=== PATIENT | female | born 1950 | race Caucasian/White ===

== ENCOUNTER 2018-08-15 11:30 | Inpatient (IN) | payer MEDICARE ==
[~2018-08-15] VITALS: Ht 154.9 cm; Wt 53.6 kg
[2018-08-15 14:09] VITALS: BP 103/71
[2018-08-15 14:12] VITALS: BP 103/71
[2018-08-15] MEDS ORDERED: IBUP-1484 PO (14:49)
[2018-08-15] MEDS ORDERED: TRAM50TA2 PO (14:49)
[2018-08-15] MEDS ORDERED: PROPOFOL 10 MG/ML, 100ML IV ONE (15:17)
[2018-08-15] MEDS ORDERED: DOPAMINE/D5W PMX 400 MG/250 ML ONE (15:17)
[2018-08-15] MEDS ORDERED: ETOMIDATE 40 MG/20 ML ONE (15:17)
[2018-08-15] MEDS ORDERED: ATROPINE SYRINGE 0.1 MG/ML, 10ML ONE (15:17)
[2018-08-15] MEDS ORDERED: SUCCINYLCHOLINE 20 MG/ML, 10ML ONE (15:17)
[2018-08-15 15:19] LABS: BASOPHILS % (AUTO) 0 % (0-1); EOSINOPHILS % (AUTO) 0 % (1-7); LYMPHOCYTES # (AUTO) 0.14 x10^3/uL (1-3.4); LYMPHOCYTES % (AUTO) 4 % (22-44); MD NO; MEAN CORPUSCULAR HEMOGLOBIN 29.3 pg (27.0-34.8); MEAN CORPUSCULAR HGB CONC 33.2 g/dL (32.4-35.8); MEAN CORPUSCULAR VOLUME 88.1 fL (80-100); MEAN PLATELET VOLUME 10.5 fL (7.4-10.4); MONOCYTES # (AUTO) 0.14 x10^3/uL (0.2-0.8); MONOCYTES % (AUTO) 4 % (2-9); NEUTROPHILS # (AUTO) 3.41 x10^3/uL (1.8-6.8); NEUTROPHILS % (AUTO) 92 % (42-75); PLATELET COUNT 147 x10^3/uL (130-400); RED BLOOD COUNT 3.69 x10^6/uL (3.82-5.3); RED CELL DISTRIBUTION WIDTH 17.9 % (9.6-15.2)
[2018-08-15 15:28] LABS: ALANINE AMINOTRANSFERASE 10 U/L (12-78); ALBUMIN 0.8 g/dL (3.4-5.0); ANION GAP 9 mmol/L (5-15); CALCIUM 7.5 mg/dL (8.5-10.1); CHLORIDE 117 mmol/L (98-107); CREATININE 3.03 mg/dL (0.55-1.02)
[2018-08-15] MEDS ORDERED: ONDANSETRON 2MG/ML, 2ML IVPush PRN (15:30)
[2018-08-15] MEDS ORDERED: POLYETHYLENE GLYCOL 17 GM PACKET PO PRN (15:30)
[2018-08-15] MEDS ORDERED: LABETALOL 5MG/ML, 20ML IVPush PRN (15:30)
[2018-08-15 15:31] LABS: ALKALINE PHOSPHATASE 216 U/L (45-117); BILIRUBIN,TOTAL 0.2 mg/dL (0.2-1.0); TOTAL PROTEIN 4.3 g/dL (6.4-8.2)
[2018-08-15] MEDS ORDERED: ALBUMIN HUMAN 25% 100 ML IV ONE (16:00)
[2018-08-15 17:05] LABS: FREE T4 (FREE THYROXINE) 0.42 ng/dL (0.76-1.46); THYROID STIMULATING HORMONE 27.3 mIU/L (0.358-3.740)
[2018-08-15] MEDS ORDERED: HYDROCORTISONE 100 MG INJ. IVPush SCH (17:30)
[2018-08-15] MEDS: HEPARIN 5,000 UNITS/ML, 1ML SQ SCH (17:32)
[2018-08-15] MEDS ORDERED: SODIUM BICARB 8.4%,50ML SYR. 50 MEQ in D5%-0.45% NACL 1,000 ML IV SCH (18:00)
[2018-08-15] MEDS ORDERED: LEVOTHYROXINE 100 MCG INJ IVPush SCH (18:00)
[2018-08-15] MEDS: LIOTHYRONINE 5 MCG TABLET PO SCH ×2 (18:00→18:19)
[2018-08-15] MEDS ORDERED: ALBUMIN HUMAN 25% 100 ML IV SCH (18:00)
[2018-08-15 18:10] LABS: MICROSCOPIC INDICATED
[2018-08-15] MEDS: LEVOTHYROXINE 100 MCG INJ IVPush SCH (18:20)
[2018-08-15 18:24] LABS: CALCIUM 7.6 mg/dL (8.5-10.1)
[2018-08-15] MEDS ORDERED: PIPERACILLIN/TAZO 2.25 GM in SODIUM CHLORIDE 0.9% 50 ML IV SCH (18:30)
[2018-08-15 18:47] LABS: CHLORIDE,URINE RANDOM 40 mmol/L; POTASSIUM,URINE RANDOM 53 mmol/L; SODIUM,URINE RANDOM 19 mmol/L
[2018-08-15] MEDS ORDERED: NOREPINEPHRINE 1 MG/ML, 4ML ONE (19:53)
[2018-08-15] MEDS ORDERED: NOREPINEPHRINE 4 MG in SODIUM CHLORIDE 0.9% 246 ML IV PRN (20:00)
[2018-08-15] MEDS ORDERED: LEVOTHYROXINE 100 MCG INJ IVPush ONE (20:00)
[2018-08-15] MEDS ORDERED: SODIUM BICARBONATE 650 MG TABLET PO SCH (21:00)
[2018-08-15] MEDS ORDERED: FAMOTIDINE 20 MG/2 ML IV SCH (21:30)
[2018-08-15] MEDS ORDERED: SODIUM CHLORIDE 0.9% 1,000ML IVBOLUS ONE (21:30)
[2018-08-15] MEDS: SODIUM CHLORIDE FLUSH 10ML SYR IVF SCH (21:30)
[2018-08-15] MEDS ORDERED: BISACODYL 10 MG SUPP PR PRN (21:30)
[2018-08-15] MEDS ORDERED: LIDOCAINE-MPF 1%, 2ML ENDO PRN (21:30)
[2018-08-15] MEDS ORDERED: PHARMACY MAY ADJ FOR RENAL FX MC SCH (21:30)
[2018-08-15] MEDS ORDERED: DEXTROSE 50%, 50ML SYRINGE IVPush PRN (21:30)
[2018-08-15] MEDS: INSULIN LISPRO 100 UNITS/ML, PEN SQ-INSULIN SCH (21:30)
[2018-08-15] MEDS ORDERED: LACTULOSE 20 GM/30 ML UDC NG PRN (21:30)
[2018-08-15] MEDS ORDERED: DEXTROSE 4 GM TAB.CHEW PO PRN (21:30)
[2018-08-15] MEDS ORDERED: SENNOSIDES 8.8 MG/5 ML ORAL SOL NG PRN (21:30)
[2018-08-15] MEDS ORDERED: GLUCAGON 1 MG IM PRN (21:30)
[2018-08-15] MEDS ORDERED: SENNA/DOCUSATE TABLET NG PRN (21:30)
[2018-08-15] MEDS: DOPAMINE/D5W PMX 250 ML IV PRN (22:00)
[2018-08-15] MEDS: MIDAZOLAM 1 MG/ML, 2ML IVPush PRN ×2 (22:07→23:36)
[2018-08-15 23:09] LABS: CREATININE,URINE RANDOM 83.4 mg/dL
[2018-08-15] MEDS: PIPERACILLIN/TAZO/PMX 2.25GM 50 ML IV SCH (23:14)
[2018-08-15 23:33] LABS: TROPONIN I 0.018 ng/mL (0.000-0.045)
[2018-08-15 23:38] LABS: INTERNATIONAL NORMALIZED RATIO 1.12 (0.93-1.1); PROTHROMBIN TIME 11.5 Seconds (9.6-11.5)
[2018-08-16] MEDS: HEPARIN 5,000 UNITS/ML, 1ML SQ SCH
[2018-08-16] MEDS: ALBUTEROL/IPRATROPIUM 2.5MG/0.5MG, 3 ML INLINE SCH ×6 (01:46→22:40)
[2018-08-16] MEDS: MIDAZOLAM 1 MG/ML, 2ML IVPush PRN ×6 (02:22→23:51)
[2018-08-16] MEDS: FENTANYL PF 100 MCG/2ML IVPush PRN ×4 (04:34→20:39)
[2018-08-16 04:52] LABS: BASOPHILS # (AUTO) 0.01 x10^3/uL (0-0.1); BASOPHILS % (AUTO) 0 % (0-1); EOSINOPHILS % (AUTO) 0 % (1-7); LYMPHOCYTES # (AUTO) 0.16 x10^3/uL (1-3.4); LYMPHOCYTES % (AUTO) 5 % (22-44); MD NO; MEAN CORPUSCULAR HEMOGLOBIN 28.7 pg (27.0-34.8); MEAN CORPUSCULAR HGB CONC 32.6 g/dL (32.4-35.8); MEAN CORPUSCULAR VOLUME 88.1 fL (80-100); MEAN PLATELET VOLUME 10.8 fL (7.4-10.4); MONOCYTES # (AUTO) 0.11 x10^3/uL (0.2-0.8); MONOCYTES % (AUTO) 4 % (2-9); NEUTROPHILS # (AUTO) 2.79 x10^3/uL (1.8-6.8); NEUTROPHILS % (AUTO) 91 % (42-75); PLATELET COUNT 115 x10^3/uL (130-400); RED BLOOD COUNT 2.45 x10^6/uL (3.82-5.3); RED CELL DISTRIBUTION WIDTH 17.4 % (9.6-15.2)
[2018-08-16 04:55] LABS: ALANINE AMINOTRANSFERASE 8 U/L (12-78); ALBUMIN 1.3 g/dL (3.4-5.0); ANION GAP 13 mmol/L (5-15); CALCIUM 7.1 mg/dL (8.5-10.1); CHLORIDE 117 mmol/L (98-107); CREATININE 2.55 mg/dL (0.55-1.02)
[2018-08-16 05:04] LABS: ALKALINE PHOSPHATASE 125 U/L (45-117); BILIRUBIN,TOTAL 0.2 mg/dL (0.2-1.0); FREE T4 (FREE THYROXINE) 0.91 ng/dL (0.76-1.46); TOTAL PROTEIN 3.7 g/dL (6.4-8.2)
[2018-08-16] MEDS: SODIUM BICARBONATE 8.4% 150 MEQ in DEXTROSE 5% 1,000 ML IV SCH ×3 (05:35→22:12)
[2018-08-16 06:00] VITALS: BP 117/52
[2018-08-16] MEDS: PIPERACILLIN/TAZO/PMX 2.25GM 50 ML IV SCH ×4 (06:30→23:50)
[2018-08-16] MEDS: INSULIN LISPRO 100 UNITS/ML, PEN SQ-INSULIN SCH ×4 (07:00→22:27)
[2018-08-16] MEDS: KSCALE TO 4.5 IV SCH ×3 (07:30→19:30)
[2018-08-16] MEDS ORDERED: POTASSIUM CHLORIDE 30 MEQ in SODIUM CHLORIDE 0.9% 100 ML IV ONE (08:30)
[2018-08-16] MEDS ORDERED: ATROPINE SYRINGE 0.1 MG/ML, 10ML ONE (08:43)
[2018-08-16] MEDS: LEVOTHYROXINE 100 MCG INJ IVPush SCH (08:57)
[2018-08-16] MEDS: SODIUM CHLORIDE FLUSH 10ML SYR IVF SCH ×2 (09:00→22:22)
[2018-08-16] MEDS: HYDROCORTISONE 100 MG INJ. IVPush SCH ×3 (09:25→23:51)
[2018-08-16] MEDS ORDERED: FUROSEMIDE 40 MG/4 ML IV ONE (12:00)
[2018-08-16 12:03] VITALS: BP 115/49
[2018-08-16 12:16] VITALS: BP 115/50
[2018-08-16 12:32] LABS: CRYPTOSPORIDIUM ANTIGEN Negative (Negative)
[2018-08-16 12:34] LABS: CLOSTRIDIUM DIFFICILE ANTIGEN NEGATIVE; CLOSTRIDIUM DIFFICILE TOXIN NEGATIVE (Negative)
[2018-08-16 13:00] VITALS: BP 122/55
[2018-08-16 14:00] VITALS: BP 131/67
[2018-08-16 14:30] VITALS: BP 120/58
[2018-08-16] MEDS: LIOTHYRONINE 5 MCG TABLET PO SCH ×3 (14:34→23:51)
[2018-08-16] MEDS: ERGOCALCIFEROL 50,000 UNIT CAPSULE PO SCH (14:34)
[2018-08-16 15:23] LABS: CREATININE,URINE RANDOM 48.6 mg/dL
[2018-08-16] MEDS ORDERED: POTASSIUM CHLORIDE PMX 100 ML IV ONE (16:00)
[2018-08-16] MEDS: FAMOTIDINE 20 MG/2 ML IV SCH (23:51)
[2018-08-17] MEDS: KSCALE TO 4.5 IV SCH ×3 (01:30→13:30)
[2018-08-17] MEDS: FENTANYL PF 100 MCG/2ML IVPush PRN ×6 (02:12→22:08)
[2018-08-17] MEDS: MIDAZOLAM 1 MG/ML, 2ML IVPush PRN (02:12)
[2018-08-17] MEDS: ALBUTEROL/IPRATROPIUM 2.5MG/0.5MG, 3 ML INLINE SCH ×6 (03:03→23:10)
[2018-08-17 04:18] LABS: FIO2 30 %
[2018-08-17 04:29] LABS: ANION GAP 9 mmol/L (5-15); CALCIUM 6.2 mg/dL (8.5-10.1); CHLORIDE 112 mmol/L (98-107); CREATININE 2.53 mg/dL (0.55-1.02)
[2018-08-17 04:39] LABS: FREE T4 (FREE THYROXINE) 1.35 ng/dL (0.76-1.46)
[2018-08-17 04:42] LABS: MEAN CORPUSCULAR HEMOGLOBIN 29.5 pg (27.0-34.8); MEAN CORPUSCULAR HGB CONC 34.3 g/dL (32.4-35.8); MEAN CORPUSCULAR VOLUME 86.1 fL (80-100); RED BLOOD COUNT 2.77 x10^6/uL (3.82-5.3); RED CELL DISTRIBUTION WIDTH 16.8 % (9.6-15.2)
[2018-08-17 05:00] LABS: BASOPHILS % (AUTO) 0 % (0-1); EOSINOPHILS % (AUTO) 0 % (1-7); LYMPHOCYTES # (AUTO) 0.12 x10^3/uL (1-3.4); LYMPHOCYTES % (AUTO) 3 % (22-44); MD SCAN; MONOCYTES # (AUTO) 0.06 x10^3/uL (0.2-0.8); MONOCYTES % (AUTO) 1 % (2-9); NEUTROPHILS # (AUTO) 4.58 x10^3/uL (1.8-6.8); NEUTROPHILS % (AUTO) 96 % (42-75); PLATELET COUNT 88 x10^3/uL (130-400)
[2018-08-17] MEDS: PIPERACILLIN/TAZO/PMX 2.25GM 50 ML IV SCH ×4 (05:34→23:59)
[2018-08-17] MEDS: SODIUM BICARBONATE 8.4% 150 MEQ in DEXTROSE 5% 1,000 ML IV SCH ×3 (05:59→23:44)
[2018-08-17] MEDS ORDERED: POTASSIUM CHLORIDE PMX 100 ML IV ONE (06:00)
[2018-08-17] MEDS ORDERED: MAGNESIUM SULFATE PMX 4GM/100M 100 ML IVPB ONE (08:00)
[2018-08-17] MEDS: HYDROCORTISONE 100 MG INJ. IVPush SCH ×2 (09:50→16:11)
[2018-08-17] MEDS: LEVOTHYROXINE 100 MCG INJ IVPush SCH (09:50)
[2018-08-17] MEDS: SODIUM CHLORIDE FLUSH 10ML SYR IVF SCH ×2 (09:50→21:22)
[2018-08-17] MEDS: LIOTHYRONINE 5 MCG TABLET PO SCH ×2 (09:51→16:12)
[2018-08-17] MEDS: INSULIN LISPRO 100 UNITS/ML, PEN SQ-INSULIN SCH ×4 (09:53→21:43)
[2018-08-17] MEDS ORDERED: FUROSEMIDE 40 MG/4 ML IV ONE (12:30)
[2018-08-17] MEDS ORDERED: CALCIUM CHLORIDE 13.6 MEQ in SODIUM CHLORIDE 0.9% 100 ML IV ONE (13:00)
[2018-08-17] MEDS: ALBUMIN HUMAN 25% 100 ML IV SCH ×2 (13:41→21:34)
[2018-08-17 17:07] LABS: INTERNATIONAL NORMALIZED RATIO 1.43 (0.93-1.1); PROTHROMBIN TIME 14.6 Seconds (9.6-11.5)
[2018-08-17] MEDS: DOPAMINE/D5W PMX 250 ML IV PRN (17:57)
[2018-08-17] MEDS ORDERED: NOREPINEPHRINE 4 MG in SODIUM CHLORIDE 0.9% 246 ML IV PRN (20:30)
[2018-08-18] VITALS (8 sets, daily range): BP systolic 93–143; BP diastolic 44–71
[2018-08-18] MEDS: LIOTHYRONINE 5 MCG TABLET PO SCH ×3 (00:03→17:21)
[2018-08-18] MEDS: HYDROCORTISONE 100 MG INJ. IVPush SCH ×2 (00:04→15:41)
[2018-08-18] MEDS: FAMOTIDINE 20 MG/2 ML IV SCH (00:04)
[2018-08-18] MEDS: ALBUTEROL/IPRATROPIUM 2.5MG/0.5MG, 3 ML INLINE SCH ×6 (03:20→22:40)
[2018-08-18] MEDS: INSULIN LISPRO 100 UNITS/ML, PEN SQ-INSULIN SCH ×4 (03:53→21:02)
[2018-08-18] MEDS: ALBUMIN HUMAN 25% 100 ML IV SCH ×3 (04:28→15:41)
[2018-08-18 04:48] LABS: ANION GAP 10 mmol/L (5-15); CALCIUM 7.1 mg/dL (8.5-10.1); CHLORIDE 103 mmol/L (98-107); CREATININE 2.65 mg/dL (0.55-1.02)
[2018-08-18 04:49] LABS: TRIGLYCERIDES 89 mg/dL (50-200)
[2018-08-18] MEDS: FENTANYL PF 100 MCG/2ML IVPush PRN ×9 (05:00→23:18)
[2018-08-18 05:20] LABS: MEAN CORPUSCULAR HEMOGLOBIN 29.9 pg (27.0-34.8); MEAN CORPUSCULAR VOLUME 85.5 fL (80-100); RED BLOOD COUNT 1.79 x10^6/uL (3.82-5.3); RED CELL DISTRIBUTION WIDTH 16.7 % (9.6-15.2)
[2018-08-18 06:05] LABS: BASOPHILS % (AUTO) 0 % (0-1); EOSINOPHILS % (AUTO) 0 % (1-7); LYMPHOCYTES # (AUTO) 0.07 x10^3/uL (1-3.4); LYMPHOCYTES % (AUTO) 2 % (22-44); MD SCAN; MEAN PLATELET VOLUME 9.9 fL (7.4-10.4); MONOCYTES # (AUTO) 0.08 x10^3/uL (0.2-0.8); MONOCYTES % (AUTO) 2 % (2-9); NEUTROPHILS # (AUTO) 4.15 x10^3/uL (1.8-6.8); NEUTROPHILS % (AUTO) 97 % (42-75); PLATELET COUNT 73 x10^3/uL (130-400)
[2018-08-18] MEDS: PIPERACILLIN/TAZO/PMX 2.25GM 50 ML IV SCH ×3 (06:18→17:21)
[2018-08-18] MEDS ORDERED: METOLAZONE 5 MG TABLET PO ONE (08:00)
[2018-08-18] MEDS ORDERED: POTASSIUM CHLORIDE PMX 100 ML IV ONE (08:00)
[2018-08-18] MEDS: KSCALE TO 4.0 IV SCH ×3 (08:00→22:43)
[2018-08-18] MEDS ORDERED: CALCIUM GLUCONATE 9.2 MEQ in SODIUM CHLORIDE 0.9% 100 ML IV ONE (09:00)
[2018-08-18] MEDS ORDERED: PHYTONADIONE 10 MG/ML, 1ML SQ SCH (09:00)
[2018-08-18 09:02] LABS: ALBUMIN 1.9 g/dL (3.4-5.0)
[2018-08-18 09:06] LABS: BILIRUBIN, DIRECT 0.2 mg/dL (0.1-0.2); BILIRUBIN,INDIRECT 0.2 mg/dL (0.0-2.0); BILIRUBIN,TOTAL 0.4 mg/dL (0.2-1.0); TOTAL PROTEIN 3.7 g/dL (6.4-8.2)
[2018-08-18] MEDS: PANTOPRAZOLE 40 MG IV IVPush SCH ×2 (09:17→20:43)
[2018-08-18] MEDS: LEVOTHYROXINE 100 MCG INJ IVPush SCH (09:18)
[2018-08-18] MEDS: PHYTONADIONE 10 MG/ML, 1ML SQ SCH (09:19)
[2018-08-18] MEDS: FUROSEMIDE 40 MG/4 ML IV SCH ×2 (09:24→20:43)
[2018-08-18] MEDS: SODIUM CHLORIDE FLUSH 10ML SYR IVF SCH ×2 (10:18→20:43)
[2018-08-18] MEDS ORDERED: POTASSIUM CHLORIDE 30 MEQ in SODIUM CHLORIDE 0.9% 100 ML IV ONE (15:30)
[2018-08-18] MEDS ORDERED: HYDROCORTISONE 100 MG INJ. IVPush SCH (15:30)
[2018-08-18] MEDS ORDERED: INSULIN REGULAR 100 UNITS/ML, 3ML VIAL IVPush ONE (22:30)
[2018-08-18] MEDS ORDERED: SODIUM BICARB 8.4%, 50ML SYRINGE IVPush ONE (22:30)
[2018-08-18] MEDS ORDERED: DEXTROSE 50%, 50ML SYRINGE IVPush ONE (22:30)
[2018-08-18] MEDS ORDERED: CALCIUM GLUCONATE 4.6 MEQ in SODIUM CHLORIDE 0.9% 50 ML IV ONE (22:30)
[2018-08-19] MEDS: HYDROCORTISONE 100 MG INJ. IVPush SCH ×3 (00:30→16:36)
[2018-08-19] MEDS: ALBUMIN HUMAN 25% 100 ML IV SCH ×3 (00:30→16:36)
[2018-08-19] MEDS: PIPERACILLIN/TAZO/PMX 2.25GM 50 ML IV SCH ×4 (00:31→18:14)
[2018-08-19] MEDS: LIOTHYRONINE 5 MCG TABLET PO SCH ×3 (03:07→18:14)
[2018-08-19] MEDS: INSULIN LISPRO 100 UNITS/ML, PEN SQ-INSULIN SCH ×4 (03:14→21:48)
[2018-08-19] MEDS: ALBUTEROL/IPRATROPIUM 2.5MG/0.5MG, 3 ML INLINE SCH ×6 (03:20→22:41)
[2018-08-19 03:38] LABS: ALBUMIN 2.8 g/dL (3.4-5.0); ANION GAP 13 mmol/L (5-15); CALCIUM 7.8 mg/dL (8.5-10.1); CHLORIDE 102 mmol/L (98-107)
[2018-08-19 03:43] LABS: ALANINE AMINOTRANSFERASE 11 U/L (12-78); ALKALINE PHOSPHATASE 250 U/L (45-117); BILIRUBIN,TOTAL 0.9 mg/dL (0.2-1.0); TOTAL PROTEIN 4.6 g/dL (6.4-8.2)
[2018-08-19 03:47] LABS: FREE T4 (FREE THYROXINE) 1.01 ng/dL (0.76-1.46); THYROID STIMULATING HORMONE 0.561 mIU/L (0.358-3.740)
[2018-08-19 03:51] LABS: MEAN CORPUSCULAR HGB CONC 35.2 g/dL (32.4-35.8); MEAN CORPUSCULAR VOLUME 82.4 fL (80-100); RED BLOOD COUNT 2.69 x10^6/uL (3.82-5.3); RED CELL DISTRIBUTION WIDTH 18.6 % (9.6-15.2)
[2018-08-19 04:23] LABS: BASOPHILS % (AUTO) 0 % (0-1); EOSINOPHILS % (AUTO) 0 % (1-7); LYMPHOCYTES % (AUTO) 2 % (22-44); MD SCAN; MEAN PLATELET VOLUME 10.2 fL (7.4-10.4); MONOCYTES # (AUTO) 0.14 x10^3/uL (0.2-0.8); MONOCYTES % (AUTO) 3 % (2-9); NEUTROPHILS # (AUTO) 5.22 x10^3/uL (1.8-6.8); NEUTROPHILS % (AUTO) 96 % (42-75); PLATELET COUNT 60 x10^3/uL (130-400)
[2018-08-19] MEDS: KSCALE TO 4.0 IV SCH ×4 (04:26→22:35)
[2018-08-19] MEDS: FENTANYL PF 100 MCG/2ML IVPush PRN ×7 (08:01→21:58)
[2018-08-19] MEDS: PANTOPRAZOLE 40 MG IV IVPush SCH ×2 (08:31→20:30)
[2018-08-19] MEDS: METOLAZONE 5 MG TABLET PO SCH (08:32)
[2018-08-19] MEDS: LEVOTHYROXINE 100 MCG INJ IVPush SCH (08:32)
[2018-08-19] MEDS: SODIUM CHLORIDE FLUSH 10ML SYR IVF SCH ×2 (08:32→20:32)
[2018-08-19] MEDS ORDERED: POTASSIUM CHLORIDE 30 MEQ in SODIUM CHLORIDE 0.9% 100 ML IV ONE (09:00)
[2018-08-19] MEDS ORDERED: FUROSEMIDE 40 MG/4 ML ONE ×2 (09:59→10:04)
[2018-08-19] MEDS: FUROSEMIDE 20 MG/2 ML IV SCH ×2 (10:19→20:31)
[2018-08-19] MEDS: PHYTONADIONE 10 MG/ML, 1ML SQ SCH (10:19)
[2018-08-19] MEDS ORDERED: POTASSIUM CHLORIDE 10% 40 MEQ/30 ML UDC PO ONE (15:00)
[2018-08-19] MEDS ORDERED: POTASSIUM CHLORIDE PMX 100 ML IV ONE ×2 (15:30→22:00)
[2018-08-19 17:56] LABS: MICROSCOPIC INDICATED
[2018-08-19 18:13] LABS: CHLORIDE,URINE RANDOM 127 mmol/L; POTASSIUM,URINE RANDOM 60 mmol/L; SODIUM,URINE RANDOM 77 mmol/L; TOTAL PROTEIN,URINE RANDOM 64 mg/dL (0-12)
[2018-08-19 18:16] LABS: CREATININE,URINE RANDOM < 13.00 mg/dL
[2018-08-19 22:02] VITALS: BP 126/72
[2018-08-19 22:15] VITALS: BP 121/70
[2018-08-19 22:30] VITALS: BP 128/66
[2018-08-19 22:45] VITALS: BP 133/74
[2018-08-19 23:22] VITALS: BP 141/77
[2018-08-19 23:45] VITALS: BP 136/71
[2018-08-20] VITALS: BP 138/79
[2018-08-20] MEDS: PIPERACILLIN/TAZO/PMX 2.25GM 50 ML IV SCH ×4 (00:37→19:22)
[2018-08-20 01:33] VITALS: BP 140/78
[2018-08-20] MEDS: LIOTHYRONINE 5 MCG TABLET PO SCH ×3 (01:45→19:21)
[2018-08-20] MEDS: HYDROCORTISONE 100 MG INJ. IVPush SCH ×2 (01:45→08:46)
[2018-08-20] MEDS: FENTANYL PF 100 MCG/2ML IVPush PRN ×7 (01:58→23:28)
[2018-08-20 02:00] VITALS: BP 144/89
[2018-08-20] MEDS: ALBUTEROL/IPRATROPIUM 2.5MG/0.5MG, 3 ML INLINE SCH ×2 (02:47→07:00)
[2018-08-20] MEDS: ALBUMIN HUMAN 25% 100 ML IV SCH ×3 (02:52→16:34)
[2018-08-20] MEDS: INSULIN LISPRO 100 UNITS/ML, PEN SQ-INSULIN SCH (04:00)
[2018-08-20 04:48] LABS: ALANINE AMINOTRANSFERASE 18 U/L (12-78); ALBUMIN 3.3 g/dL (3.4-5.0); ANION GAP 14 mmol/L (5-15); CALCIUM 7.7 mg/dL (8.5-10.1); CHLORIDE 105 mmol/L (98-107); CREATININE 2.72 mg/dL (0.55-1.02)
[2018-08-20 04:50] LABS: ALKALINE PHOSPHATASE 285 U/L (45-117); BILIRUBIN,TOTAL 2.2 mg/dL (0.2-1.0); MEAN CORPUSCULAR HEMOGLOBIN 30.6 pg (27.0-34.8); MEAN CORPUSCULAR HGB CONC 34.7 g/dL (32.4-35.8); MEAN CORPUSCULAR VOLUME 88.2 fL (80-100); MEAN PLATELET VOLUME 9.2 fL (7.4-10.4); PLATELET COUNT 108 x10^3/uL (130-400); RED BLOOD COUNT 3.69 x10^6/uL (3.82-5.3); TOTAL PROTEIN 5.4 g/dL (6.4-8.2)
[2018-08-20] MEDS: KSCALE TO 4.0 IV SCH ×4 (05:19→20:29)
[2018-08-20] MEDS ORDERED: POTASSIUM CHLORIDE PMX 100 ML IV ONE ×3 (05:30→20:30)
[2018-08-20 05:46] LABS: BASOPHILS % (AUTO) 0 % (0-1); EOSINOPHILS % (AUTO) 0 % (1-7); LYMPHOCYTES % (AUTO) 2 % (22-44); MD SCAN; MONOCYTES # (AUTO) 0.09 x10^3/uL (0.2-0.8); MONOCYTES % (AUTO) 1 % (2-9); NEUTROPHILS # (AUTO) 6.42 x10^3/uL (1.8-6.8); NEUTROPHILS % (AUTO) 97 % (42-75)
[2018-08-20] MEDS: PANTOPRAZOLE 40 MG IV IVPush SCH ×2 (08:46→19:58)
[2018-08-20] MEDS: FUROSEMIDE 20 MG/2 ML IV SCH ×2 (08:47→19:59)
[2018-08-20] MEDS: PHYTONADIONE 10 MG/ML, 1ML SQ SCH ×2 (08:48→09:00)
[2018-08-20] MEDS: METOLAZONE 5 MG TABLET PO SCH (08:49)
[2018-08-20] MEDS: SODIUM CHLORIDE FLUSH 10ML SYR IVF SCH ×2 (09:14→19:59)
[2018-08-20] MEDS: LEVOTHYROXINE 100 MCG INJ IVPush SCH (09:16)
[2018-08-20] MEDS ORDERED: FUROSEMIDE 40 MG/4 ML ONE (19:52)
[2018-08-21] MEDS: ALBUMIN HUMAN 25% 100 ML IV SCH ×2 (00:22→09:47)
[2018-08-21] MEDS: PIPERACILLIN/TAZO/PMX 2.25GM 50 ML IV SCH ×4 (00:23→18:21)
[2018-08-21] MEDS: KSCALE TO 4.0 IV SCH ×3 (02:00→14:00)
[2018-08-21] MEDS ORDERED: POTASSIUM CHLORIDE PMX 100 ML IV ONE ×2 (02:00→08:30)
[2018-08-21] MEDS: LIOTHYRONINE 5 MCG TABLET PO SCH ×3 (02:06→18:21)
[2018-08-21] MEDS: FENTANYL PF 100 MCG/2ML IVPush PRN ×6 (02:50→19:51)
[2018-08-21] MEDS: LEVOTHYROXINE 100 MCG TABLET PO SCH (05:57)
[2018-08-21 07:31] LABS: ALANINE AMINOTRANSFERASE 20 U/L (12-78); ALBUMIN 3.2 g/dL (3.4-5.0); ANION GAP 10 mmol/L (5-15); CALCIUM 7.9 mg/dL (8.5-10.1); CHLORIDE 108 mmol/L (98-107); CREATININE 2.71 mg/dL (0.55-1.02)
[2018-08-21 07:35] LABS: ALKALINE PHOSPHATASE 193 U/L (45-117); BILIRUBIN,TOTAL 0.9 mg/dL (0.2-1.0); TOTAL PROTEIN 5.2 g/dL (6.4-8.2); TRIGLYCERIDES 72 mg/dL (50-200)
[2018-08-21 08:14] LABS: MEAN CORPUSCULAR HEMOGLOBIN 29.9 pg (27.0-34.8); MEAN CORPUSCULAR HGB CONC 33.9 g/dL (32.4-35.8); MEAN PLATELET VOLUME 9.3 fL (7.4-10.4); PLATELET COUNT 66 x10^3/uL (130-400); RED BLOOD COUNT 3.62 x10^6/uL (3.82-5.3); RED CELL DISTRIBUTION WIDTH 17.8 % (9.6-15.2)
[2018-08-21 08:15] LABS: BASOPHILS % (AUTO) 0 % (0-1); EOSINOPHILS % (AUTO) 0 % (1-7); LYMPHOCYTES # (AUTO) 0.15 x10^3/uL (1-3.4); LYMPHOCYTES % (AUTO) 2 % (22-44); MD SCAN; MONOCYTES # (AUTO) 0.18 x10^3/uL (0.2-0.8); MONOCYTES % (AUTO) 3 % (2-9); NEUTROPHILS # (AUTO) 5.88 x10^3/uL (1.8-6.8); NEUTROPHILS % (AUTO) 95 % (42-75)
[2018-08-21] MEDS: PANTOPRAZOLE 40 MG IV IVPush SCH ×2 (08:59→21:12)
[2018-08-21] MEDS: METOLAZONE 5 MG TABLET PO SCH (09:00)
[2018-08-21] MEDS: INSULIN LISPRO 100 UNITS/ML, PEN SQ-INSULIN SCH (09:00)
[2018-08-21] MEDS: FUROSEMIDE 40 MG/4 ML IV SCH ×2 (09:01→18:21)
[2018-08-21] MEDS: SODIUM CHLORIDE FLUSH 10ML SYR IVF SCH ×2 (09:01→21:02)
[2018-08-21] MEDS ORDERED: POTASSIUM CHLORIDE 20 MEQ in SODIUM CHLORIDE 0.9% 250 ML IV ONE (09:30)
[2018-08-22] MEDS: PIPERACILLIN/TAZO/PMX 2.25GM 50 ML IV SCH ×4 (01:08→18:34)
[2018-08-22] MEDS: FENTANYL PF 100 MCG/2ML IVPush PRN ×3 (02:19→20:39)
[2018-08-22] MEDS: LIOTHYRONINE 5 MCG TABLET PO SCH ×3 (02:19→17:39)
[2018-08-22 04:37] LABS: MEAN CORPUSCULAR HEMOGLOBIN 30.5 pg (27.0-34.8); MEAN CORPUSCULAR HGB CONC 34.9 g/dL (32.4-35.8); MEAN CORPUSCULAR VOLUME 87.5 fL (80-100); RED BLOOD COUNT 3.44 x10^6/uL (3.82-5.3); RED CELL DISTRIBUTION WIDTH 17.7 % (9.6-15.2)
[2018-08-22 04:47] LABS: ALANINE AMINOTRANSFERASE 20 U/L (12-78); ALBUMIN 2.8 g/dL (3.4-5.0); ANION GAP 7 mmol/L (5-15); CALCIUM 8.3 mg/dL (8.5-10.1); CHLORIDE 109 mmol/L (98-107); CREATININE 2.72 mg/dL (0.55-1.02)
[2018-08-22 04:49] LABS: ALKALINE PHOSPHATASE 156 U/L (45-117); BILIRUBIN,TOTAL 0.8 mg/dL (0.2-1.0)
[2018-08-22 04:52] LABS: MEAN PLATELET VOLUME 9.9 fL (7.4-10.4)
[2018-08-22 04:53] LABS: BASOPHILS % (AUTO) 0 % (0-1); EOSINOPHILS # (AUTO) 0.01 x10^3/uL (0-0.4); EOSINOPHILS % (AUTO) 0 % (1-7); LYMPHOCYTES # (AUTO) 0.13 x10^3/uL (1-3.4); LYMPHOCYTES % (AUTO) 3 % (22-44); MONOCYTES # (AUTO) 0.19 x10^3/uL (0.2-0.8); MONOCYTES % (AUTO) 4 % (2-9); NEUTROPHILS % (AUTO) 93 % (42-75)
[2018-08-22 04:56] LABS: PLATELET COUNT 44 x10^3/uL (130-400)
[2018-08-22 04:59] LABS: MD SCAN
[2018-08-22] MEDS: LEVOTHYROXINE 100 MCG TABLET PO SCH (06:06)
[2018-08-22] MEDS: FUROSEMIDE 40 MG/4 ML IV SCH (08:00)
[2018-08-22] MEDS ORDERED: POTASSIUM CHLORIDE 10% 40 MEQ/30 ML UDC PO ONE (08:30)
[2018-08-22] MEDS: INSULIN LISPRO 100 UNITS/ML, PEN SQ-INSULIN SCH (09:00)
[2018-08-22] MEDS: POTASSIUM CHLORIDE 20 MEQ PACKET PO SCH ×2 (09:00→20:27)
[2018-08-22] MEDS: FUROSEMIDE 80 MG TABLET PO SCH ×2 (09:02→17:39)
[2018-08-22] MEDS: PANTOPRAZOLE 40 MG IV IVPush SCH ×2 (09:02→20:27)
[2018-08-22] MEDS: SODIUM CHLORIDE FLUSH 10ML SYR IVF SCH ×2 (09:07→20:27)
[2018-08-22] MEDS ORDERED: LEVO100T PO (10:53)
[2018-08-22] MEDS ORDERED: Zosyn (10:53)
[2018-08-22] MEDS ORDERED: FURO80TA3 PO (10:53)
[2018-08-22] MEDS ORDERED: LIOT5TAB3 PO (10:53)
[2018-08-22] MEDS ORDERED: ERGO500017 PO (10:53)
[2018-08-22] MEDS ORDERED: PANT40VI IVPush (10:53)
[2018-08-22] MEDS ORDERED: INSU100I11 SQ-INSULIN (10:53)
[2018-08-22 14:38] VITALS: BP 138/88
[2018-08-22 19:30] VITALS: BP 133/75
[2018-08-23] MEDS: PIPERACILLIN/TAZO/PMX 2.25GM 50 ML IV SCH ×4 (00:43→19:33)
[2018-08-23] MEDS: LIOTHYRONINE 5 MCG TABLET PO SCH ×3 (02:00→19:33)
[2018-08-23 02:04] VITALS: BP 132/81
[2018-08-23] MEDS: FENTANYL PF 100 MCG/2ML IVPush PRN ×4 (02:45→22:48)
[2018-08-23 05:23] LABS: ALBUMIN 2.3 g/dL (3.4-5.0); ANION GAP 13 mmol/L (5-15); CHLORIDE 111 mmol/L (98-107)
[2018-08-23 05:26] LABS: ALANINE AMINOTRANSFERASE 22 U/L (12-78); ALKALINE PHOSPHATASE 252 U/L (45-117); BILIRUBIN,TOTAL 0.8 mg/dL (0.2-1.0); CREATININE 2.65 mg/dL (0.55-1.02); TOTAL PROTEIN 4.8 g/dL (6.4-8.2)
[2018-08-23] MEDS: LEVOTHYROXINE 100 MCG TABLET PO SCH (06:02)
[2018-08-23 06:15] LABS: MEAN CORPUSCULAR HEMOGLOBIN 30.6 pg (27.0-34.8); MEAN CORPUSCULAR HGB CONC 34.8 g/dL (32.4-35.8); MEAN CORPUSCULAR VOLUME 87.9 fL (80-100); MEAN PLATELET VOLUME 10.6 fL (7.4-10.4); PLATELET COUNT 57 x10^3/uL (130-400); RED BLOOD COUNT 3.21 x10^6/uL (3.82-5.3); RED CELL DISTRIBUTION WIDTH 17.9 % (9.6-15.2)
[2018-08-23 06:46] LABS: BASOPHILS % (AUTO) 0 % (0-1); EOSINOPHILS # (AUTO) 0.01 x10^3/uL (0-0.4); EOSINOPHILS % (AUTO) 0 % (1-7); LYMPHOCYTES # (AUTO) 0.14 x10^3/uL (1-3.4); LYMPHOCYTES % (AUTO) 3 % (22-44); MD MORPH REVIEW ONLY; MONOCYTES # (AUTO) 0.24 x10^3/uL (0.2-0.8); MONOCYTES % (AUTO) 6 % (2-9); NEUTROPHILS # (AUTO) 3.97 x10^3/uL (1.8-6.8); NEUTROPHILS % (AUTO) 91 % (42-75)
[2018-08-23 06:47] LABS: ANISOCYTOSIS 1+; ECHINOCYTES 1+; OVALOCYTES 1+
[2018-08-23 06:48] LABS: <PLATELET ESTIMATE> DECREASED; LARGE PLATELETS 1+
[2018-08-23] MEDS: FUROSEMIDE 80 MG TABLET PO SCH ×2 (08:52→17:00)
[2018-08-23] MEDS: ERGOCALCIFEROL 50,000 UNIT CAPSULE PO SCH (08:56)
[2018-08-23] MEDS: POTASSIUM CHLORIDE 20 MEQ PACKET PO SCH ×2 (08:57→22:42)
[2018-08-23] MEDS: INSULIN LISPRO 100 UNITS/ML, PEN SQ-INSULIN SCH (09:00)
[2018-08-23] MEDS: SODIUM CHLORIDE FLUSH 10ML SYR IVF SCH ×2 (09:47→21:36)
[2018-08-23] MEDS: PANTOPRAZOLE 40 MG IV IVPush SCH ×2 (09:47→21:36)
[2018-08-23 11:41] VITALS: BP 126/84
[2018-08-23 13:00] VITALS: BP 142/88
[2018-08-23 18:40] VITALS: BP 122/77
[2018-08-24] MEDS: PIPERACILLIN/TAZO/PMX 2.25GM 50 ML IV SCH ×3 (01:50→13:35)
[2018-08-24 03:00] VITALS: BP 120/76
[2018-08-24] MEDS: FENTANYL PF 100 MCG/2ML IVPush PRN ×2 (03:14→05:18)
[2018-08-24] MEDS: LIOTHYRONINE 5 MCG TABLET PO SCH ×2 (03:14→10:32)
[2018-08-24 03:52] LABS: MEAN CORPUSCULAR HEMOGLOBIN 30.1 pg (27.0-34.8); MEAN CORPUSCULAR HGB CONC 34.5 g/dL (32.4-35.8); MEAN CORPUSCULAR VOLUME 87.4 fL (80-100); RED CELL DISTRIBUTION WIDTH 18.1 % (9.6-15.2)
[2018-08-24 04:01] LABS: ALANINE AMINOTRANSFERASE 27 U/L (12-78); ALBUMIN 2.2 g/dL (3.4-5.0); ANION GAP 10 mmol/L (5-15); CHLORIDE 115 mmol/L (98-107); CREATININE 2.64 mg/dL (0.55-1.02)
[2018-08-24 04:03] LABS: ALKALINE PHOSPHATASE 295 U/L (45-117); BILIRUBIN,TOTAL 0.7 mg/dL (0.2-1.0); TOTAL PROTEIN 4.9 g/dL (6.4-8.2)
[2018-08-24 04:27] LABS: BASOPHILS % (AUTO) 0 % (0-1); EOSINOPHILS # (AUTO) 0.02 x10^3/uL (0-0.4); EOSINOPHILS % (AUTO) 1 % (1-7); LYMPHOCYTES # (AUTO) 0.19 x10^3/uL (1-3.4); LYMPHOCYTES % (AUTO) 6 % (22-44); MD SCAN; MEAN PLATELET VOLUME 10.6 fL (7.4-10.4); MONOCYTES # (AUTO) 0.29 x10^3/uL (0.2-0.8); MONOCYTES % (AUTO) 9 % (2-9); NEUTROPHILS % (AUTO) 85 % (42-75); PLATELET COUNT 79 x10^3/uL (130-400)
[2018-08-24] MEDS: LEVOTHYROXINE 100 MCG TABLET PO SCH (05:19)
[2018-08-24 07:42] VITALS: BP 127/78
[2018-08-24] MEDS: PANTOPRAZOLE 40 MG IV IVPush SCH (07:55)
[2018-08-24] MEDS: FUROSEMIDE 80 MG TABLET PO SCH ×2 (07:55→16:41)
[2018-08-24] MEDS: POTASSIUM CHLORIDE 20 MEQ PACKET PO SCH (07:55)
[2018-08-24] MEDS: INSULIN LISPRO 100 UNITS/ML, PEN SQ-INSULIN SCH (07:56)
[2018-08-24] MEDS: SODIUM CHLORIDE FLUSH 10ML SYR IVF SCH (07:56)
[2018-08-24] MEDS ORDERED: ACETAMINOPHEN 650 MG/20.3 ML UDC ONE (10:25)
[2018-08-24] MEDS ORDERED: ACETAMINOPHEN 650 MG/20.3 ML UDC PO PRN (10:30)
[2018-08-24 13:35] VITALS: BP 142/86
[2018-08-24] MEDS ORDERED: LIOT5TAB3 PO (15:33)
[2018-08-24] MEDS ORDERED: PANT40TA5 PO (15:37)
[2018-08-25] MEDS ORDERED: PIPERACILLIN/TAZO/PMX 2.25GM 50 ML IV SCH (18:30)
== END 2018-08-24 17:26 | DRG 870 ==
LOC: 4EST 12:59 → CCU 18:26 → 3NW 08-22 10:09
PROVIDERS: ADMIT Hospitalist; ATTEND Hospitalist
PROC: 5A1955Z Respiratory Ventilation, Greater than 96 Consecutive Hours (ICD-10-PCS; 2018-08-15)
PROC: 04HY32Z Insertion of Monitoring Device into Lower Artery, Percutaneous Approach (ICD-10-PCS; 2018-08-15)
PROC: 4A133B1 Monitoring of Arterial Pressure, Peripheral, Percutaneous Approach (ICD-10-PCS; 2018-08-15)
PROC: 4A133J1 Monitoring of Arterial Pulse, Peripheral, Percutaneous Approach (ICD-10-PCS; 2018-08-15)
PROC: 30233N1 Transfusion of Nonautologous Red Blood Cells into Peripheral Vein, Percutaneous Approach (ICD-10-PCS; 2018-08-16)
PROC: 02HV33Z Insertion of Infusion Device into Superior Vena Cava, Percutaneous Approach (ICD-10-PCS; 2018-08-16)
PROC: B548ZZA Ultrasonography of Superior Vena Cava, Guidance (ICD-10-PCS; 2018-08-16)
PROC: 0BH18EZ Insertion of Endotracheal Airway into Trachea, Via Natural or Artificial Opening Endoscopic (ICD-10-PCS; 2018-08-16)
PROC: 30233L1 Transfusion of Nonautologous Fresh Plasma into Peripheral Vein, Percutaneous Approach (ICD-10-PCS; principal; 2018-08-18)
PROC: 0T9B70Z Drainage of Bladder with Drainage Device, Via Natural or Artificial Opening (ICD-10-PCS; 2018-08-19)
PROC: 30233R1 Transfusion of Nonautologous Platelets into Peripheral Vein, Percutaneous Approach (ICD-10-PCS; 2018-08-20)
DX: A41.9 Sepsis, unspecified organism (principal); E43 Unspecified severe protein-calorie malnutrition; D61.810 Antineoplastic chemotherapy induced pancytopenia; D65 Disseminated intravascular coagulation [defibrination syndrome]; N17.0 Acute kidney failure with tubular necrosis; J96.01 Acute respiratory failure with hypoxia; J15.6 Pneumonia due to other Gram-negative bacteria; J81.0 Acute pulmonary edema; E03.5 Myxedema coma; C19 Malignant neoplasm of rectosigmoid junction; D62 Acute posthemorrhagic anemia; Z99.11 Dependence on respirator [ventilator] status; K56.609 Unspecified intestinal obstruction, unspecified as to partial versus complete obstruction; J90 Pleural effusion, not elsewhere classified; N25.81 Secondary hyperparathyroidism of renal origin; N39.0 Urinary tract infection, site not specified; E27.40 Unspecified adrenocortical insufficiency; D63.8 Anemia in other chronic diseases classified elsewhere; T45.1X5A Adverse effect of antineoplastic and immunosuppressive drugs, initial encounter; K76.9 Liver disease, unspecified; K52.9 Noninfective gastroenteritis and colitis, unspecified; I07.1 Rheumatic tricuspid insufficiency; E87.6 Hypokalemia; E83.42 Hypomagnesemia; E83.51 Hypocalcemia; E87.70 Fluid overload, unspecified; Z90.49 Acquired absence of other specified parts of digestive tract; Z87.891 Personal history of nicotine dependence; Z85.048 Personal history of other malignant neoplasm of rectum, rectosigmoid junction, and anus; Z79.890 Hormone replacement therapy; Z92.3 Personal history of irradiation; Z93.3 Colostomy status; Z68.23 Body mass index [BMI] 23.0-23.9, adult
CPT/HCPCS: 36415; 36569; 36600; 71045; 74018; 74230; 76700; 76770; 76937; 77001; 80048; 80053; 80074; 80076; 81001; 82306; 82310; 82330; 82436; 82533; 82570; 82728; 82803; 82962; 83540; 83550; 83605; 83735; 83880; 83930; 83935; 83970; 84100; 84132; 84133; 84145; 84156; 84300; 84439; 84443; 84478; 84481; 84484; 84550; 85014; 85018; 85025; 85384; 85610; 85730; 86850; 86900; 86923; 87040; 87070; 87077; 87081; 87086; 87106; 87107; 87186; 87205; 87324; 87328; 87329; 87806; 93306; 94002; 94003; 94640; C1760; G0378; J0461; J0610; J1265; J1644; J1815; J1940; J2250; J2543; J2704; J3010; J3430; J3480; J7070; J7620; P9047; C1751; C9113; G0475; J0330; J1720; J3475; J7030; J7050; P9016; P9017; P9035; S0028

== ENCOUNTER 2018-09-07 17:59 | Emergency (ER) | payer MEDICARE ==
[~2018-09-07] VITALS: Ht 154.9 cm; Wt 40.7 kg
[~2018-09-07 17:59] MED LIST: ERGO500017 PO; FURO80TA3 PO; IBUP-1484 PO; INSU100I11 SQ-INSULIN; LEVO100T PO; LIOT5TAB3 PO; PANT40TA5 PO; PANT40VI IVPush; TRAM50TA2 PO; Zosyn
[2018-09-07 18:40] LABS: ALBUMIN 1.6 g/dL (3.4-5.0); ANION GAP 9 mmol/L (5-15); CALCIUM 6.4 mg/dL (8.5-10.1); CHLORIDE 114 mmol/L (98-107)
[2018-09-07 18:44] LABS: ALANINE AMINOTRANSFERASE 28 U/L (12-78); ALKALINE PHOSPHATASE 166 U/L (45-117); BILIRUBIN,TOTAL 0.1 mg/dL (0.2-1.0); CREATININE 0.48 mg/dL (0.55-1.02); TOTAL PROTEIN 4.6 g/dL (6.4-8.2)
[2018-09-07 18:51] LABS: MEAN CORPUSCULAR HEMOGLOBIN 31.7 pg (27.0-34.8); MEAN CORPUSCULAR HGB CONC 34.9 g/dL (32.4-35.8); MEAN CORPUSCULAR VOLUME 90.9 fL (80-100); MEAN PLATELET VOLUME 6.6 fL (7.4-10.4); PLATELET COUNT 556 x10^3/uL (130-400); RED BLOOD COUNT 2.18 x10^6/uL (3.82-5.3)
[2018-09-07 18:52] LABS: HEMOGRAM NOTE RECHECKED
[2018-09-07 19:07] LABS: TROPONIN I < 0.015 ng/mL (0.000-0.045)
[2018-09-07 19:08] LABS: MD MORPH REVIEW ONLY
[2018-09-07 19:09] LABS: ANISOCYTOSIS 1+; BASOPHILS # (AUTO) 0.02 x10^3/uL (0-0.1); BASOPHILS % (AUTO) 1 % (0-1); EOSINOPHILS % (AUTO) 0 % (1-7); LYMPHOCYTES # (AUTO) 0.45 x10^3/uL (1-3.4); LYMPHOCYTES % (AUTO) 13 % (22-44); MONOCYTES # (AUTO) 0.29 x10^3/uL (0.2-0.8); MONOCYTES % (AUTO) 8 % (2-9); NEUTROPHILS # (AUTO) 2.68 x10^3/uL (1.8-6.8); NEUTROPHILS % (AUTO) 78 % (42-75); POLYCHROMASIA 1+
[2018-09-07 19:10] LABS: <PLATELET ESTIMATE> INCREASED; <PLT MORPHOLOGY> NORMAL PLT MORPH
[2018-09-07] MEDS ORDERED: CALCIUM GLUCONATE 4.6 MEQ in SODIUM CHLORIDE 0.9% 50 ML IV ONE (19:30)
[2018-09-07] MEDS ORDERED: CALCIUM GLUCONATE 4.6 MEQ/10 ML IVPush ONE (19:30)
[2018-09-07 20:06] VITALS: BP 98/56
[2018-09-07 20:21] VITALS: BP 102/60
[2018-09-07 21:45] VITALS: BP 96/54
[2018-09-07 21:58] VITALS: BP 99/52
[2018-09-07 22:08] VITALS: BP 103/60
== END 2018-09-07 22:45 | disposition home or self-care (01) ==
LOC: ED 19:33 → SUATTDRO 19:48 → ED 22:45
PROVIDERS: ATTEND Hospitalist
DX: D64.9 Anemia, unspecified (principal); K59.00 Constipation, unspecified; R60.0 Localized edema; E88.09 Other disorders of plasma-protein metabolism, not elsewhere classified; E83.51 Hypocalcemia; Z85.038 Personal history of other malignant neoplasm of large intestine
CPT/HCPCS: 36415; 36430; 71045; 80053; 82330; 83880; 84484; 85025; 86850; 86900; 86923; 93005; 96365; 99285; J0610; P9016